=== PATIENT | male | born 1985 | race Caucasian/White ===

== ENCOUNTER → 2022-01-12 | Emergency (ER) | payer SELFPAY | END | disposition home or self-care (01) | LOC: ER1 13:49 | DX: S01.01XA Laceration without foreign body of scalp, initial encounter (principal); W22.8XXA Striking against or struck by other objects, initial encounter; Z88.6 Allergy status to analgesic agent; Y92.89 Other specified places as the place of occurrence of the external cause; Y99.0 Civilian activity done for income or pay | CPT/HCPCS: 12002; 99282 ==